=== PATIENT | female | born 1990 | race Caucasian/White ===

== ENCOUNTER 2017-04-02 13:31 | Emergency (ER) | payer BC, MEDICAID ==
[~2017-04-02] VITALS: Ht 167.6 cm; Wt 66.8 kg
[~2017-04-02 13:31] MED LIST: CALC600T56 PO; FERR325E14 PO; FOLI1TAB19 PO; IBUP-974 PO; PREN-385 PO
[2017-04-02 13:57] VITALS: BP 107/65
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
--- NOTE | 2017-04-02 14:10 | NUR ---
Patient taken from ED lobby to XRAY via wheelchair by tech.
[2017-04-02 15:09] VITALS: BP 102/56
== END 2017-04-02 15:07 | disposition home or self-care (01) ==
LOC: MED 13:31
DX: S16.1XXA Strain of muscle, fascia and tendon at neck level, initial encounter (principal); S60.222A Contusion of left hand, initial encounter; V49.49XA Driver injured in collision with other motor vehicles in traffic accident, initial encounter; Y93.89 Activity, other specified; Y92.89 Other specified places as the place of occurrence of the external cause; Y99.8 Other external cause status
CPT/HCPCS: 72050; 72110; 81002; 81025; 99284

== ENCOUNTER 2018-09-28 21:51 | Emergency (ER) | payer BC, MEDICAID ==
[~2018-09-28] VITALS: Ht 160 cm; Wt 59.0 kg
[2018-09-28 22:08] VITALS: BP 131/84
--- NOTE | 2018-09-28 22:16 | NUR ---
PT TAKEN TO BED 8
--- NOTE | 2018-09-28 23:03 | NUR ---
Dr. Aguayo evaluating patient at bedside.
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
[2018-09-28] MEDS ORDERED: KETOROLAC 60 MG/2 ML VIAL IM ONE (23:15)
[2018-09-29 00:50] VITALS: BP 122/77
== END 2018-09-29 00:50 | disposition home or self-care (01) ==
LOC: MED 21:51
DX: G44.209 Tension-type headache, unspecified, not intractable (principal); R42 Dizziness and giddiness; H53.8 Other visual disturbances; Z79.899 Other long term (current) drug therapy
CPT/HCPCS: 96372; 99283; J1885

== ENCOUNTER 2018-11-27 12:14 | Emergency (ER) | payer BC ==
[~2018-11-27] VITALS: Ht 160 cm; Wt 61.7 kg
[2018-11-27 12:40] VITALS: BP 122/58
--- NOTE | 2018-11-27 14:14 | NUR ---
PATIENT AMBULATED TO ER BED 9.
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
[2018-11-27] MEDS ORDERED: KETOROLAC 30 MG/ML VIAL IM ONE (15:05)
--- NOTE | 2018-11-27 15:24 | NUR ---
PT TO RADIOLOGY VIA
--- NOTE | 2018-11-27 15:45 | NUR ---
RETURNED FROM RADIOLOGY
--- NOTE | 2018-11-27 16:19 | NUR ---
Patient discharged with v/s stable. Written and verbal after care instructions given and explained. Patient alert, oriented and verbalized understanding of instructions. Ambulatory with steady gait. All questions addressed prior to discharge. ID band removed. Patient advised to follow up with PMD. Rx of COLACE/METAMUCIL/TYLENOL/IBUPROFEN given. Patient educated on indication of medication including possible reaction and side effects. Opportunity to ask questions provided and answered.
[2018-11-27 16:20] VITALS: BP 119/63
== END 2018-11-27 16:19 | disposition home or self-care (01) ==
LOC: MED 12:14
DX: S13.9XXA Sprain of joints and ligaments of unspecified parts of neck, initial encounter (principal); K59.00 Constipation, unspecified; V49.49XA Driver injured in collision with other motor vehicles in traffic accident, initial encounter; Y93.89 Activity, other specified; Y99.8 Other external cause status; Y92.488 Other paved roadways as the place of occurrence of the external cause
CPT/HCPCS: 72050; 74022; 81002; 81025; 96372; 99283; J1885